=== PATIENT | male | born 1980 | race Caucasian/White ===

== ENCOUNTER 2018-04-20 08:10 | Outpatient (CLI) | payer OTHER | END 2018-04-20 09:07 | disposition home or self-care (01) | LOC: LAB 08:10 | DX: D64.89 Other specified anemias (principal); E03.8 Other specified hypothyroidism; E11.9 Type 2 diabetes mellitus without complications; N40.0 Benign prostatic hyperplasia without lower urinary tract symptoms; E55.9 Vitamin D deficiency, unspecified ==

== ENCOUNTER 2020-02-28 06:00 | Outpatient (CLI) | payer OTHER | END 2020-02-28 08:00 | disposition home or self-care (01) | LOC: PPH VACUNA 06:00 | DX: Z23 Encounter for immunization (principal) ==

== ENCOUNTER 2021-04-15 08:00 | Outpatient (CLI) | payer OTHER | END 2021-04-15 08:30 | disposition home or self-care (01) | LOC: PPH VACUNA 08:00 | PROVIDERS: ATTEND Emergency Medicine Pediatric Emergency Medicine | DX: Z23 Encounter for immunization (principal) ==

== ENCOUNTER 2021-04-15 08:00 | Outpatient (CLI) | payer OTHER | END 2021-04-15 08:30 | disposition home or self-care (01) | LOC: PPH VACUNA 08:00 | PROVIDERS: ATTEND Emergency Medicine Pediatric Emergency Medicine | DX: Z23 Encounter for immunization (principal) ==

== ENCOUNTER 2022-02-12 08:00 | Outpatient (CLI) | payer OTHER | END 2022-02-12 08:05 | disposition home or self-care (01) | LOC: PPH VACUNA 08:00 | PROVIDERS: ATTEND Emergency Medicine Pediatric Emergency Medicine | DX: Z23 Encounter for immunization (principal) ==

== ENCOUNTER 2022-07-14 08:29 | Outpatient (CLI) | payer OTHER | END 2022-07-14 08:33 | disposition home or self-care (01) | LOC: LAB 08:29 | PROVIDERS: ATTEND Radiology Diagnostic Radiology | DX: D68.9 Coagulation defect, unspecified (principal); I10 Essential (primary) hypertension; E11.9 Type 2 diabetes mellitus without complications; Z00.00 Encounter for general adult medical examination without abnormal findings ==

== ENCOUNTER 2023-03-06 11:00 | Outpatient (CLI) | payer OTHER | END 2023-03-06 11:10 | disposition home or self-care (01) | LOC: PPH VACUNA 11:00 | PROVIDERS: ATTEND Emergency Medicine Pediatric Emergency Medicine | DX: Z23 Encounter for immunization (principal) | CPT/HCPCS: 90686; G0008 ==

== ENCOUNTER 2024-03-30 10:47 | Outpatient (CLI) | payer OTHER | END 2024-03-30 11:00 | disposition home or self-care (01) | LOC: PPH VACUNA 10:47 | PROVIDERS: ATTEND Emergency Medicine Pediatric Emergency Medicine | DX: Z23 Encounter for immunization (principal) ==